=== PATIENT | female | born 1965 | race Asian ===

== ENCOUNTER 2016-11-19 21:42 | Emergency (ER) | payer BC ==
[2016-11-19 21:57] VITALS: BP 157/74
--- NOTE | 2016-11-19 22:12 | UC ---
Skin Complaint HPI - HPI Summary HPI Summary: 51 yo female with tick noted on left ant thigh tonight Not there this AM not noticed when going to bathroom earlier today has a dog was not out much today - History of Current Complaint Chief Complaint: [facility] Time Seen by Provider: 11/19/16 21:51 Stated Complaint: TICK BITE Hx Obtained From: Patient Hx Last Menstrual Period: 11/26/16 Onset/Duration: Sudden Onset, Lasting Minutes Timing: Constant Onset Severity: Mild Current Severity: None Pain Intensity: 0 Pain Scale Used: 0-10 Numeric Location: Other - left thigh Associated Signs & Symptoms: Positive: Negative Related History: Insect Bite/Sting - Allergy/Home Medications Allergies/Adverse Reactions: Allergies Allergy/AdvReac Type Severity Reaction Status Date / Time No Known Allergies Allergy Verified 11/19/16 21:57 Home Medications: Home Medications NK [No Home Medications Reported] 11/19/16 [History Confirmed 11/19/16] Review of Systems Constitutional: Negative Skin: Negative Eyes: Negative ENT: Negative Respiratory: Negative Cardiovascular: Negative Gastrointestinal: Negative Genitourinary: Negative Motor: Negative Neurovascular: Negative Musculoskeletal: Negative Neurological: Negative Psychological: Negative All Other Systems Reviewed And Are Negative: Yes PMH/Surg Hx/FS Hx/Imm Hx Previously Healthy: Yes Endocrine History Of: Denies: Diabetes, Thyroid Disease Cardiovascular History Of: Reports: Hypertension Denies: Cardiac Disorders Respiratory History Of: Denies: COPD, Asthma GI/ History Of: Denies: Ulcer - Surgical History Surgical History: None - Family History Known Family History: Positive: Hypertension - Social History Alcohol Use: None Substance Use Type: None Smoking Status (MU): Never Smoked Tobacco Physical Exam Triage Information Reviewed: Yes Appearance: Well-Appearing, No Pain Distress, Well-Nourished Vital Signs: Initial Vital Signs Temp 98.7 F 11/19/16 21:47 Pulse 81 11/19/16 21:47 Resp 18 11/19/16 21:47 BP 157/74 11/19/16 21:47 Pulse Ox 98 11/19/16 21:47 Vital Signs Reviewed: Yes Eyes: Positive: Conjunctiva Clear ENT: Positive: Hearing grossly normal. Negative: Nasal congestion, Nasal drainage, Trismus, Muffled/hoarse voice Neck: Positive: Supple Respiratory: Positive: Lungs clear, Normal breath sounds, No respiratory distress Cardiovascular: Positive: RRR, No Murmur Musculoskeletal: Positive: ROM Intact, No Edema Neurological Exam: Normal Neurological: Positive: Alert Psychological Exam: Normal Skin Exam: Other - tick-removed in toto Course/Dx - Diagnoses Provider Diagnoses: tick bite Discharge - Discharge Plan Condition: Stable Disposition: HOME Patient Education Materials: Tick Bite (ED) Referrals: [facility] [place] [facility] REFERRAL [Outside] (call to find a local MD your BP was high 157/94) Additional Instructions: call for any questions return for any problems your BP should be followed by a strategic communications specialist it was high on today's visit
== END 2016-11-19 22:13 | disposition home or self-care (01) ==
LOC: UCEAST 21:42
DX: S70.362A Insect bite (nonvenomous), left thigh, initial encounter (principal); W57.XXXA Bitten or stung by nonvenomous insect and other nonvenomous arthropods, initial encounter; Y93.9 Activity, unspecified; Y92.9 Unspecified place or not applicable; I10 Essential (primary) hypertension
CPT/HCPCS: 99201; G0463